=== PATIENT | female | born 1930 | race Caucasian/White ===

== ENCOUNTER 2017-04-20 13:47 | Emergency (ER) | payer OTHER ==
[~2017-04-20] VITALS: Ht 167.6 cm; Wt 77.1 kg
[2017-04-20 13:47] VITALS: BP_SYST 103
[2017-04-20 14:54] LABS: BASOPHILS # (AUTO) 0.1 K/uL (0.0-0.2); BASOPHILS % (AUTO) 1.3 % (0.0-2.0); EOSINOPHILS # (AUTO) 0.2 K/uL (0.0-0.4); EOSINOPHILS % (AUTO) 2.2 % (0.0-4.0); HEMATOCRIT 27.8 % (36-48); LYMPHOCYTES # (AUTO) 1.4 K/uL (1.0-5.5); LYMPHOCYTES % (AUTO) 17.7 % (20.5-51.5); MEAN CORPUSCULAR HEMOGLOBIN 28 pg (27-31); MEAN CORPUSCULAR HGB CONC 33 % (32-36); MEAN CORPUSCULAR VOLUME 86 fL (79.0-98.0); MONOCYTES # (AUTO) 0.3 K/uL (0.0-1.0); MONOCYTES % (AUTO) 3.7 % (1.7-9.3); NEUTROPHILS # (AUTO) 5.9 K/uL (1.8-7.7); NEUTROPHILS % (AUTO) 75.1 % (40.0-70.0); PLATELET COUNT (AUTO) 350 K/uL (130-430); RED BLOOD CELL COUNT(AUTO) 3.22 MIL/uL (4.2-6.2); RED CELL DISTRIBUTION WIDTH 15.5 % (9.0-15.0); WHITE BLOOD COUNT (AUTO) 7.9 K/uL (4.8-10.8)
[2017-04-20 15:05] LABS: ANION GAP 9 (5-15); CALCIUM 9.4 mg/dL (8.4-11.0); CHLORIDE 101 mmol/L (98-107); CREATININE 3.64 mg/dL (0.55-1.30); GLUCOSE 241 mg/dL (70-99); POTASSIUM 5.4 mmol/L (3.5-5.1); SODIUM SERUM 134 mmol/L (136-145); UREA NITROGEN, BLOOD 93 mg/dL (8-21)
[2017-04-20 15:10] LABS: ALANINE AMINOTRANSFERASE 25 U/L (12-78); ALBUMIN 2.8 g/dL (3.4-4.8); ASPARTATE AMINOTRANSFERASE 22 U/L (10-37); TOTAL BILIRUBIN 0.3 mg/dL (0.0-1.0)
[2017-04-20 15:15] LABS: INR 1.1 (0.8-1.2); PROTHROMBIN TIME 11.1 SECS (9.5-12.5)
[2017-04-20 15:42] VITALS: BP_SYST 113
[2017-05-02] MEDS ORDERED: LEVO250T20 PO (05:56)
== END 2017-04-20 15:42 | disposition home or self-care (01) ==
LOC: SED 13:47
DX: K64.4 Residual hemorrhoidal skin tags (principal); I13.10 Hypertensive heart and chronic kidney disease without heart failure, with stage 1 through stage 4 chronic kidney disease, or unspecified chronic kidney disease; E11.22 Type 2 diabetes mellitus with diabetic chronic kidney disease; N18.9 Chronic kidney disease, unspecified; N17.9 Acute kidney failure, unspecified; Z90.89 Acquired absence of other organs; Z90.710 Acquired absence of both cervix and uterus
CPT/HCPCS: 36415; 80053; 85025; 85610-TC; 85730-TC; 99284

== ENCOUNTER 2017-05-02 04:35 | Inpatient (IN) | payer OTHER ==
[~2017-05-02] VITALS: Ht 167.6 cm; Wt 84.8 kg
[2017-05-02 04:40] VITALS: BP_SYST 140
[2017-05-02] MEDS ORDERED: NACL 0.9% 1,000 ML IV ONE ×2 (04:45→07:45)
[2017-05-02] MEDS ORDERED: KETOROLAC TROMETHAMINE 30 MG VIAL IVP ONE (05:00)
[2017-05-02] MEDS ORDERED: LEVOFLOXACIN 500 MG/D5W 100 ML IV ONE (05:30)
[2017-05-02] MEDS ORDERED: PIPERACILLIN/TAZO 3.375 GM in NS 50 ML IV ONE (05:30)
[2017-05-02] MEDS ORDERED: PIPERACILLIN/TAZOBACTAM 3.375 GM/VIAL (ZOSYN) IV ONE (05:40)
[2017-05-02 05:45] LABS: BILIRUBIN,URINE NEGATIVE (NEGATIVE); BLOOD, URINE NEGATIVE (NEGATIVE); CLARITY/URINE CLEAR (CLEAR); COLOR,URINE YELLOW (YELLOW); GLUCOSE,URINE NEGATIVE (NEGATIVE); KETONES,URINE NEGATIVE (NEGATIVE); LEUKOCYTE ESTERASE ,URINE NEGATIVE (NEGATIVE); NITRITE, URINE NEGATIVE (NEGATIVE); PH,URINE 5.5 (5.0-8.0); PROTEIN URINE 2+ (NEGATIVE); UROBILINOGEN,URINE 0.2 (0.2-1.0)
[2017-05-02] MEDS ORDERED: AMIO400T5 PO (05:46)
[2017-05-02] MEDS ORDERED: DILT30TA36 PO (05:47)
[2017-05-02] MEDS ORDERED: PRAV40TA PO (05:47)
[2017-05-02] MEDS ORDERED: GABA-529 PO (05:47)
[2017-05-02] MEDS ORDERED: TOPXL100 PO (05:48)
[2017-05-02] MEDS ORDERED: INSU200I SQ (05:49)
[2017-05-02] MEDS ORDERED: SENN-104 PO (05:54)
[2017-05-02] MEDS ORDERED: PEG15DRO4 OP (05:55)
[2017-05-02] MEDS ORDERED: LEVO250T2 PO (05:56)
[2017-05-02] MEDS ORDERED: TYLENOL PM PO (05:57)
[2017-05-02 05:59] LABS: BASOPHILS # (AUTO) 0.1 K/uL (0.0-0.2); BASOPHILS % (AUTO) 1.2 % (0.0-2.0); EOSINOPHILS # (AUTO) 0.4 K/uL (0.0-0.4); EOSINOPHILS % (AUTO) 6.1 % (0.0-4.0); HEMATOCRIT 24.6 % (36-48); HEMOGLOBIN 8.1 g/dL (12.0-16.0); LYMPHOCYTES # (AUTO) 1.1 K/uL (1.0-5.5); LYMPHOCYTES % (AUTO) 17.3 % (20.5-51.5); MEAN CORPUSCULAR HEMOGLOBIN 29 pg (27-31); MEAN CORPUSCULAR HGB CONC 33 % (32-36); MEAN CORPUSCULAR VOLUME 87 fL (79.0-98.0); MONOCYTES # (AUTO) 0.6 K/uL (0.0-1.0); MONOCYTES % (AUTO) 9.7 % (1.7-9.3); NEUTROPHILS % (AUTO) 65.7 % (40.0-70.0); PLATELET COUNT (AUTO) 377 K/uL (130-430); RED BLOOD CELL COUNT(AUTO) 2.82 MIL/uL (4.2-6.2); WHITE BLOOD COUNT (AUTO) 6.2 K/uL (4.8-10.8)
[2017-05-02 06:01] LABS: ANION GAP 8 (5-15); CALCIUM 9.4 mg/dL (8.4-11.0); CHLORIDE 94 mmol/L (98-107); CREATININE 3.08 mg/dL (0.55-1.30); GLUCOSE 201 mg/dL (70-99); POTASSIUM 4.9 mmol/L (3.5-5.1); SODIUM SERUM 124 mmol/L (136-145); UREA NITROGEN, BLOOD 51 mg/dL (8-21)
[2017-05-02 06:03] LABS: BACTERIA,URINE MODERATE /HPF (None Seen); MUCUS,URINE 1+ /LPF (None Seen); RBC,URINE 0-3 /HPF (0-3)
[2017-05-02 06:03] LABS: INR 1.1 (0.8-1.2); PROTHROMBIN TIME 10.7 SECS (9.5-12.5)
[2017-05-02 06:05] LABS: ALANINE AMINOTRANSFERASE 23 U/L (12-78); ASPARTATE AMINOTRANSFERASE 22 U/L (10-37); TOTAL BILIRUBIN 0.4 mg/dL (0.0-1.0)
[2017-05-02 08:06] VITALS: BP_SYST 153
[2017-05-02] MEDS ORDERED: DEXTROSE 50% JECT 50 ML DISP.SYRIN IVP PRN (09:45)
[2017-05-02] MEDS ORDERED: MORPHINE SULFATE 10 MG/ML VIAL IVP PRN (09:45)
[2017-05-02] MEDS ORDERED: METOCLOPRAMIDE HCL 10 MG/2 ML VIAL IVP PRN (09:45)
[2017-05-02] MEDS ORDERED: cefTRIAXone 1 GM IVPB PREMIX 50 ML IV ONE (10:00)
[2017-05-02] MEDS ORDERED: DILTIAZEM HCL 30 MG TABLET PO ONE (10:00)
[2017-05-02] MEDS ORDERED: AMIODARONE HCL 200 MG TABLET PO ONE (10:00)
[2017-05-02] MEDS ORDERED: GABAPENTIN 100 MG CAPSULE PO ONE (10:00)
[2017-05-02] MEDS ORDERED: METOPROLOL SUCCINATE 50 MG TAB.SR.24H (TOPROL XL) PO ONE (10:00)
[2017-05-02] MEDS: ONDANSETRON HCL 4 MG/2 ML VIAL IVP PRN (10:04)
[2017-05-02] MEDS: PHENAZOPYRIDINE HCL 100 MG TABLET PO SCH ×2 (11:34→17:46)
[2017-05-02 11:38] VITALS: BP_SYST 140
[2017-05-02] MEDS: INSULIN REGULAR, HUMAN 100 UNITS/ML, 10 ML VIAL (novoLIN R) SUBCUT PRN ×2 (11:53→17:51)
[2017-05-02] MEDS: DILTIAZEM HCL 30 MG TABLET PO SCH ×2 (15:02→21:58)
[2017-05-02] MEDS: AMIODARONE HCL 200 MG TABLET PO SCH ×2 (15:03→21:57)
[2017-05-02 16:02] VITALS: BP_SYST 131
[2017-05-02 20:00] VITALS: BP_SYST 119
[2017-05-02] MEDS ORDERED: PRAVASTATIN SODIUM 20 MG TABLET (PRAVACHOL) PO SCH (21:00)
[2017-05-02] MEDS: MORPHINE 2 MG/ML INJ. SYRINGE IVP PRN (21:58)
[2017-05-02] MEDS: SIMVASTATIN 20 MG TABLET PO SCH (21:58)
[2017-05-03 00:22] VITALS: BP_SYST 148
[2017-05-03] MEDS: INSULIN REGULAR, HUMAN 100 UNITS/ML, 10 ML VIAL (novoLIN R) SUBCUT PRN ×4 (00:22→17:32)
[2017-05-03 08:04] VITALS: BP_SYST 124
[2017-05-03] MEDS: MORPHINE 2 MG/ML INJ. SYRINGE IVP PRN (08:23)
[2017-05-03] MEDS: ONDANSETRON HCL 4 MG/2 ML VIAL IVP PRN ×2 (08:31→20:58)
[2017-05-03] MEDS: GABAPENTIN 100 MG CAPSULE PO SCH (08:37)
[2017-05-03] MEDS: PHENAZOPYRIDINE HCL 100 MG TABLET PO SCH ×3 (08:37→18:13)
[2017-05-03] MEDS: METOPROLOL SUCCINATE 50 MG TAB.SR.24H (TOPROL XL) PO SCH (08:41)
[2017-05-03] MEDS: DILTIAZEM HCL 30 MG TABLET PO SCH ×3 (08:42→20:57)
[2017-05-03] MEDS: AMIODARONE HCL 200 MG TABLET PO SCH ×3 (08:44→20:58)
[2017-05-03] MEDS: cefTRIAXone 1 GM IVPB PREMIX 50 ML IV SCH (08:44)
[2017-05-03 10:37] LABS: BASOPHILS % (AUTO) 0.7 % (0.0-2.0); EOSINOPHILS # (AUTO) 0.3 K/uL (0.0-0.4); HEMATOCRIT 24.7 % (36-48); LYMPHOCYTES # (AUTO) 0.9 K/uL (1.0-5.5)
[2017-05-03 10:41] LABS: EOSINOPHILS % (AUTO) 4.7 % (0.0-4.0); HEMOGLOBIN 7.9 g/dL (12.0-16.0); LYMPHOCYTES % (AUTO) 14.5 % (20.5-51.5); MEAN CORPUSCULAR HEMOGLOBIN 28 pg (27-31); MEAN CORPUSCULAR HGB CONC 32 % (32-36); MEAN CORPUSCULAR VOLUME 88 fL (79.0-98.0); MONOCYTES # (AUTO) 0.4 K/uL (0.0-1.0); MONOCYTES % (AUTO) 6.2 % (1.7-9.3); NEUTROPHILS # (AUTO) 4.6 K/uL (1.8-7.7); NEUTROPHILS % (AUTO) 73.9 % (40.0-70.0); PLATELET COUNT (AUTO) 372 K/uL (130-430); RED BLOOD CELL COUNT(AUTO) 2.81 MIL/uL (4.2-6.2); RED CELL DISTRIBUTION WIDTH 18.1 % (9.0-15.0); WHITE BLOOD COUNT (AUTO) 6.2 K/uL (4.8-10.8)
[2017-05-03 10:47] LABS: ANION GAP 11 (5-15); CALCIUM 9.1 mg/dL (8.4-11.0); CHLORIDE 94 mmol/L (98-107); CREATININE 2.99 mg/dL (0.55-1.30); GLUCOSE 224 mg/dL (70-99); POTASSIUM 5.1 mmol/L (3.5-5.1); SODIUM SERUM 126 mmol/L (136-145); UREA NITROGEN, BLOOD 54 mg/dL (8-21)
[2017-05-03 10:53] LABS: ALANINE AMINOTRANSFERASE 21 U/L (12-78); ALBUMIN 2.6 g/dL (3.4-4.8); ASPARTATE AMINOTRANSFERASE 17 U/L (10-37); TOTAL BILIRUBIN 0.2 mg/dL (0.0-1.0)
[2017-05-03] MEDS ORDERED: EPOETIN ALFA 10,000 UNITS/ML VIAL SUBCUT ONE (12:00)
[2017-05-03] MEDS ORDERED: POLYETHYLENE GLYCOL 3350, 17 GM/ POWD.PACK PO ONE (12:00)
[2017-05-03 12:26] VITALS: BP_SYST 130
[2017-05-03] MEDS: POLYETHYLENE GLYCOL 3350, 17 GM/ POWD.PACK PO SCH (15:00)
[2017-05-03] MEDS: SOD FERRIC GLUC COMPLEX/SUC 125 MG in NS 100 ML IV SCH (15:01)
[2017-05-03 16:23] VITALS: BP_SYST 150
[2017-05-03 19:20] VITALS: BP_SYST 133
[2017-05-03] MEDS: SIMVASTATIN 20 MG TABLET PO SCH (20:57)
[2017-05-03] MEDS: DOCUSATE SODIUM 100 MG CAPSULE PO SCH (20:58)
[2017-05-03 22:58] LABS: BILIRUBIN,URINE NEGATIVE (NEGATIVE); CLARITY/URINE CLEAR (CLEAR); COLOR,URINE YELLOW (YELLOW); GLUCOSE,URINE TRACE (NEGATIVE); KETONES,URINE NEGATIVE (NEGATIVE); LEUKOCYTE ESTERASE ,URINE NEGATIVE (NEGATIVE); NITRITE, URINE POSITIVE (NEGATIVE); PH,URINE 5.5 (5.0-8.0); PROTEIN URINE 3+ (NEGATIVE)
[2017-05-03 22:59] LABS: BLOOD, URINE TRACE (NEGATIVE)
[2017-05-03 23:04] LABS: BACTERIA,URINE MODERATE /HPF (None Seen)
[2017-05-04 00:09] VITALS: BP_SYST 135
[2017-05-04 07:16] LABS: BASOPHILS % (AUTO) 0.5 % (0.0-2.0); EOSINOPHILS # (AUTO) 0.2 K/uL (0.0-0.4); EOSINOPHILS % (AUTO) 3.4 % (0.0-4.0); HEMATOCRIT 25.1 % (36-48); HEMOGLOBIN 8.1 g/dL (12.0-16.0); LYMPHOCYTES # (AUTO) 0.7 K/uL (1.0-5.5); LYMPHOCYTES % (AUTO) 10.2 % (20.5-51.5); MEAN CORPUSCULAR HEMOGLOBIN 28 pg (27-31); MEAN CORPUSCULAR HGB CONC 32 % (32-36); MEAN CORPUSCULAR VOLUME 87 fL (79.0-98.0); MONOCYTES # (AUTO) 0.6 K/uL (0.0-1.0); MONOCYTES % (AUTO) 9.7 % (1.7-9.3); NEUTROPHILS # (AUTO) 5.1 K/uL (1.8-7.7); NEUTROPHILS % (AUTO) 76.2 % (40.0-70.0); PLATELET COUNT (AUTO) 382 K/uL (130-430); RED CELL DISTRIBUTION WIDTH 17.4 % (9.0-15.0); WHITE BLOOD COUNT (AUTO) 6.6 K/uL (4.8-10.8)
[2017-05-04 07:23] LABS: ALANINE AMINOTRANSFERASE 21 U/L (12-78); ALBUMIN 2.6 g/dL (3.4-4.8); ANION GAP 9 (5-15); ASPARTATE AMINOTRANSFERASE 17 U/L (10-37); CALCIUM 9.2 mg/dL (8.4-11.0); CHLORIDE 95 mmol/L (98-107); CREATININE 2.98 mg/dL (0.55-1.30); GLUCOSE 157 mg/dL (70-99); SODIUM SERUM 126 mmol/L (136-145); TOTAL BILIRUBIN 0.2 mg/dL (0.0-1.0); UREA NITROGEN, BLOOD 52 mg/dL (8-21)
[2017-05-04 08:00] VITALS: BP_SYST 155
[2017-05-04] MEDS: GABAPENTIN 100 MG CAPSULE PO SCH (08:16)
[2017-05-04] MEDS: DILTIAZEM HCL 30 MG TABLET PO SCH ×3 (08:17→20:58)
[2017-05-04] MEDS: DOCUSATE SODIUM 100 MG CAPSULE PO SCH ×2 (08:17→21:00)
[2017-05-04] MEDS: POLYETHYLENE GLYCOL 3350, 17 GM/ POWD.PACK PO SCH ×2 (08:18→21:00)
[2017-05-04] MEDS: METOPROLOL SUCCINATE 50 MG TAB.SR.24H (TOPROL XL) PO SCH (08:18)
[2017-05-04] MEDS: PHENAZOPYRIDINE HCL 100 MG TABLET PO SCH (08:18)
[2017-05-04] MEDS: cefTRIAXone 1 GM IVPB PREMIX 50 ML IV SCH (08:21)
[2017-05-04] MEDS: AMIODARONE HCL 200 MG TABLET PO SCH ×3 (08:22→20:59)
[2017-05-04] MEDS: ONDANSETRON HCL 4 MG/2 ML VIAL IVP PRN (08:26)
[2017-05-04] MEDS: MORPHINE 2 MG/ML INJ. SYRINGE IVP PRN (11:13)
[2017-05-04 12:12] VITALS: BP_SYST 120
[2017-05-04] MEDS: INSULIN REGULAR, HUMAN 100 UNITS/ML, 10 ML VIAL (novoLIN R) SUBCUT PRN ×3 (13:01→23:24)
[2017-05-04] MEDS: SOD FERRIC GLUC COMPLEX/SUC 125 MG in NS 100 ML IV SCH (14:25)
[2017-05-04 16:19] VITALS: BP_SYST 137
[2017-05-04 20:00] VITALS: BP_SYST 140
[2017-05-04] MEDS: SIMVASTATIN 20 MG TABLET PO SCH (20:59)
[2017-05-05] VITALS: BP_SYST 124
[2017-05-05 05:41] VITALS: BP_SYST 150
[2017-05-05] MEDS: INSULIN REGULAR, HUMAN 100 UNITS/ML, 10 ML VIAL (novoLIN R) SUBCUT PRN ×4 (05:49→23:54)
[2017-05-05 06:50] LABS: BASOPHILS % (AUTO) 0.2 % (0.0-2.0); EOSINOPHILS # (AUTO) 0.3 K/uL (0.0-0.4); EOSINOPHILS % (AUTO) 5.4 % (0.0-4.0); HEMOGLOBIN 7.7 g/dL (12.0-16.0); LYMPHOCYTES # (AUTO) 0.8 K/uL (1.0-5.5); LYMPHOCYTES % (AUTO) 13.5 % (20.5-51.5); MEAN CORPUSCULAR HEMOGLOBIN 29 pg (27-31); MEAN CORPUSCULAR HGB CONC 33 % (32-36); MEAN CORPUSCULAR VOLUME 87 fL (79.0-98.0); MONOCYTES # (AUTO) 0.5 K/uL (0.0-1.0); MONOCYTES % (AUTO) 9.3 % (1.7-9.3); NEUTROPHILS # (AUTO) 4.3 K/uL (1.8-7.7); NEUTROPHILS % (AUTO) 71.6 % (40.0-70.0); PLATELET COUNT (AUTO) 360 K/uL (130-430); RED BLOOD CELL COUNT(AUTO) 2.64 MIL/uL (4.2-6.2); RED CELL DISTRIBUTION WIDTH 17.9 % (9.0-15.0); WHITE BLOOD COUNT (AUTO) 5.9 K/uL (4.8-10.8)
[2017-05-05 07:23] LABS: ALANINE AMINOTRANSFERASE 23 U/L (12-78); ALBUMIN 2.5 g/dL (3.4-4.8); ANION GAP 8 (5-15); ASPARTATE AMINOTRANSFERASE 19 U/L (10-37); CALCIUM 9.2 mg/dL (8.4-11.0); CHLORIDE 96 mmol/L (98-107); CREATININE 3.21 mg/dL (0.55-1.30); GLUCOSE 158 mg/dL (70-99); POTASSIUM 4.8 mmol/L (3.5-5.1); SODIUM SERUM 127 mmol/L (136-145); TOTAL BILIRUBIN 0.2 mg/dL (0.0-1.0); UREA NITROGEN, BLOOD 55 mg/dL (8-21)
[2017-05-05 07:24] VITALS: BP_SYST 150
[2017-05-05] MEDS: GABAPENTIN 100 MG CAPSULE PO SCH (08:37)
[2017-05-05] MEDS: DOCUSATE SODIUM 100 MG CAPSULE PO SCH ×2 (08:37→21:56)
[2017-05-05] MEDS: POLYETHYLENE GLYCOL 3350, 17 GM/ POWD.PACK PO SCH ×3 (08:37→21:59)
[2017-05-05] MEDS: AMIODARONE HCL 200 MG TABLET PO SCH ×3 (08:39→21:55)
[2017-05-05] MEDS: METOPROLOL SUCCINATE 50 MG TAB.SR.24H (TOPROL XL) PO SCH (08:40)
[2017-05-05] MEDS: DILTIAZEM HCL 30 MG TABLET PO SCH ×3 (08:41→21:56)
[2017-05-05] MEDS: cefTRIAXone 1 GM IVPB PREMIX 50 ML IV SCH (08:41)
[2017-05-05] MEDS: MINERAL OIL 30 ML UDC PO SCH ×2 (11:05→21:54)
[2017-05-05 12:01] VITALS: BP_SYST 158
[2017-05-05] MEDS: SOD FERRIC GLUC COMPLEX/SUC 125 MG in NS 100 ML IV SCH (15:23)
[2017-05-05] MEDS: MORPHINE 2 MG/ML INJ. SYRINGE IVP PRN (15:52)
[2017-05-05 16:00] VITALS: BP_SYST 157
[2017-05-05] MEDS ORDERED: HEPARIN SODIUM,PORCINE 5000 UNITS/ML VIAL ONE (16:28)
[2017-05-05] MEDS ORDERED: HEPARIN SODIUM, PORCINE 10,000 UNITS/ 10 ML VIAL MC ONE (17:00)
[2017-05-05 20:00] VITALS: BP_SYST 135
[2017-05-05] MEDS: SIMVASTATIN 20 MG TABLET PO SCH (21:55)
[2017-05-06 01:09] VITALS: BP_SYST 149
[2017-05-06 08:10] VITALS: BP_SYST 142
[2017-05-06] MEDS: MINERAL OIL 30 ML UDC PO SCH ×2 (08:15→21:00)
[2017-05-06] MEDS: POLYETHYLENE GLYCOL 3350, 17 GM/ POWD.PACK PO SCH ×2 (08:15)
[2017-05-06] MEDS: METOPROLOL SUCCINATE 50 MG TAB.SR.24H (TOPROL XL) PO SCH (08:16)
[2017-05-06] MEDS: cefTRIAXone 1 GM IVPB PREMIX 50 ML IV SCH (08:16)
[2017-05-06] MEDS: DILTIAZEM HCL 30 MG TABLET PO SCH ×3 (08:16→20:59)
[2017-05-06] MEDS: AMIODARONE HCL 200 MG TABLET PO SCH ×3 (08:17→21:00)
[2017-05-06] MEDS: GABAPENTIN 100 MG CAPSULE PO SCH (08:17)
[2017-05-06] MEDS: DOCUSATE SODIUM 100 MG CAPSULE PO SCH ×2 (08:17→21:00)
[2017-05-06] MEDS: INSULIN REGULAR, HUMAN 100 UNITS/ML, 10 ML VIAL (novoLIN R) SUBCUT PRN (11:07)
[2017-05-06 12:00] VITALS: BP_SYST 121
[2017-05-06] MEDS: SOD FERRIC GLUC COMPLEX/SUC 125 MG in NS 100 ML IV SCH (14:37)
[2017-05-06 16:00] VITALS: BP_SYST 122
[2017-05-06] MEDS: SIMVASTATIN 20 MG TABLET PO SCH (20:59)
[2017-05-06] MEDS: TEMAZEPAM 15 MG CAPSULE PO PRN (21:46)
[2017-05-06] MEDS: MORPHINE 2 MG/ML INJ. SYRINGE IVP PRN (21:47)
[2017-05-06 23:42] VITALS: BP_SYST 135
[2017-05-07 08:06] VITALS: BP_SYST 146
[2017-05-07] MEDS: MINERAL OIL 30 ML UDC PO SCH ×2 (08:07→21:16)
[2017-05-07] MEDS: POLYETHYLENE GLYCOL 3350, 17 GM/ POWD.PACK PO SCH (08:07)
[2017-05-07] MEDS: DOCUSATE SODIUM 100 MG CAPSULE PO SCH ×2 (08:07→21:08)
[2017-05-07] MEDS: cefTRIAXone 1 GM IVPB PREMIX 50 ML IV SCH (08:14)
[2017-05-07] MEDS: METOPROLOL SUCCINATE 50 MG TAB.SR.24H (TOPROL XL) PO SCH (08:14)
[2017-05-07] MEDS: DILTIAZEM HCL 30 MG TABLET PO SCH ×3 (08:15→21:11)
[2017-05-07] MEDS: AMIODARONE HCL 200 MG TABLET PO SCH ×3 (08:15→21:13)
[2017-05-07] MEDS: GABAPENTIN 100 MG CAPSULE PO SCH (08:15)
[2017-05-07] MEDS: MORPHINE 2 MG/ML INJ. SYRINGE IVP PRN (08:50)
[2017-05-07 09:13] LABS: HEPATITIS A AB, IgM Negative (Negative); HEPATITIS B CORE AB, IgM Negative (Negative); HEPATITIS B SURFACE AG Negative (Negative)
[2017-05-07] MEDS ORDERED: HYDROmorphone 2 MG/ML VIAL ONE (12:09)
[2017-05-07] MEDS ORDERED: HYDROmorphone 2 MG/ML VIAL IVP PRN (12:15)
[2017-05-07 12:45] VITALS: BP_SYST 136
[2017-05-07] MEDS: SOD FERRIC GLUC COMPLEX/SUC 125 MG in NS 100 ML IV SCH (14:17)
[2017-05-07 16:02] VITALS: BP_SYST 132
[2017-05-07] MEDS: INSULIN REGULAR, HUMAN 100 UNITS/ML, 10 ML VIAL (novoLIN R) SUBCUT PRN ×2 (17:28→23:29)
[2017-05-07] MEDS: SIMVASTATIN 20 MG TABLET PO SCH (21:13)
[2017-05-07] MEDS: TEMAZEPAM 15 MG CAPSULE PO PRN (21:17)
[2017-05-08 01:45] VITALS: BP_SYST 123; BP_SYST 163
[2017-05-08 09:10] VITALS: BP_SYST 150
[2017-05-08] MEDS: cefTRIAXone 1 GM IVPB PREMIX 50 ML IV SCH (09:56)
[2017-05-08] MEDS: POLYETHYLENE GLYCOL 3350, 17 GM/ POWD.PACK PO SCH (09:57)
[2017-05-08] MEDS: MINERAL OIL 30 ML UDC PO SCH ×3 (09:57→20:10)
[2017-05-08] MEDS: GABAPENTIN 100 MG CAPSULE PO SCH (09:57)
[2017-05-08] MEDS: AMIODARONE HCL 200 MG TABLET PO SCH ×3 (09:58→20:08)
[2017-05-08] MEDS: DOCUSATE SODIUM 100 MG CAPSULE PO SCH ×3 (09:58→20:10)
[2017-05-08] MEDS: DILTIAZEM HCL 30 MG TABLET PO SCH ×3 (09:59→20:08)
[2017-05-08] MEDS: METOPROLOL SUCCINATE 50 MG TAB.SR.24H (TOPROL XL) PO SCH (09:59)
[2017-05-08] MEDS: INSULIN REGULAR, HUMAN 100 UNITS/ML, 10 ML VIAL (novoLIN R) SUBCUT PRN ×2 (11:33→17:45)
[2017-05-08 12:41] VITALS: BP_SYST 157
[2017-05-08] MEDS: SOD FERRIC GLUC COMPLEX/SUC 125 MG in NS 100 ML IV SCH (14:31)
[2017-05-08 16:22] VITALS: BP_SYST 135
[2017-05-08 18:00] VITALS: BP_SYST 135
[2017-05-08] MEDS: SIMVASTATIN 20 MG TABLET PO SCH (20:05)
== END 2017-05-08 20:35 | disposition hospice, inpatient (51) | DRG 682 ==
LOC: SED 04:35 → STU 07:34 → SMU 05-06 21:04
PROVIDERS: ADMIT Internal Medicine Hospice and Palliative Medicine; ATTEND Internal Medicine Hospice and Palliative Medicine
PROC: 02HV33Z Insertion of Infusion Device into Superior Vena Cava, Percutaneous Approach (ICD-10-PCS; principal; 2017-05-05)
PROC: B548ZZA Ultrasonography of Superior Vena Cava, Guidance (ICD-10-PCS; 2017-05-05)
PROC: 5A1D70Z Performance of Urinary Filtration, Intermittent, Less than 6 Hours Per Day (ICD-10-PCS; 2017-05-05)
DX: N17.9 Acute kidney failure, unspecified (principal); I50.23 Acute on chronic systolic (congestive) heart failure; I13.2 Hypertensive heart and chronic kidney disease with heart failure and with stage 5 chronic kidney disease, or end stage renal disease; J18.9 Pneumonia, unspecified organism; E11.22 Type 2 diabetes mellitus with diabetic chronic kidney disease; I48.2 Chronic atrial fibrillation; J44.9 Chronic obstructive pulmonary disease, unspecified; D63.1 Anemia in chronic kidney disease; E87.1 Hypo-osmolality and hyponatremia; N39.0 Urinary tract infection, site not specified; N18.6 End stage renal disease; Z86.73 Personal history of transient ischemic attack (TIA), and cerebral infarction without residual deficits; Z91.040 Latex allergy status; Z79.899 Other long term (current) drug therapy; Z88.1 Allergy status to other antibiotic agents
CPT/HCPCS: 36415; 36600; 71045; 80053; 81000-TC; 82803-TC; 82962; 83605; 83880; 84302-TC; 84484; 85025; 85610-TC; 85730-TC; 86705; 86709; 87040-TC; 87081; 87086; 87340; 90935; 92610-GN; 93005; 93306; 96365; 96367; 96375; 99285; G0378; J0696; J0885; J1170; J1644; J1815; J1885; J1956; J2270; J2405; J2543; J2765; J2916